=== PATIENT | female | born 1990 | race Caucasian/White ===

== ENCOUNTER 2017-01-01 01:45 | Emergency (ER) | payer BC ==
[~2017-01-01] VITALS: Ht 157.5 cm; Wt 59.4 kg
[~2017-01-01 01:45] MED LIST: AMOX-355 PO; BIRTH CONTROL PO; HYDR-3454 PO; HYDR-3714 PO; MAGN400T6 PO; METF500T8 PO; NAPR-243 PO; NITR-65 PO; OSLT75C PO
--- OUTSIDE RECORDS SUMMARY | 2017-01-01 01:53 | XMS REPORT | Continuity of Care Document ---
Author Author [facility] Address Unknown Phone Unavailable Allergies Active Description Code Type Severity Reaction Onset Reported/Identified Relationship to Patient Clinical Status Yes No Known Drug Allergies [id number] Drug Allergy Unknown N/ A 09/26/2013 Medications Problems Date Dx Coded Attending Type Code Diagnosis Diagnosed By 06/18/2010 Ot 719.41 06/18/2010 Ot 726.10 07/03/2012 ROMEL PHD, MIMI Arzola 296.22 MO DEPRESSIVE SINGLE MODERATE 07/03/2012 296.22 MO DEPRESSIVE SINGLE MODERATE 07/03/2012 296.22 MO DEPRESSIVE SINGLE MODERATE 07/12/2012 296.32 MO DEPRESSIVE RECURRENT MODERATE 07/12/2012 296.32 MO DEPRESSIVE RECURRENT MODERATE 07/23/2013 GONZALEZ KINNEY DO Ot 307.46 SLEEP AROUSAL DISORDER 07/23/2013 GONZALEZ KINNEY DO Ot 307.47 SLEEP STAGE DYSFUNC NEC 07/23/2013 GONZALEZ KINNEY DO Ot 786.09 RESPIRATORY ABNORM NEC 10/03/2013 CASPER CHO MD Ot 470 DEVIATED NASAL SEPTUM 10/03/2013 CASPER CHO MD Ot 478.0 HYPERTRPH NASAL TURBINAT 12/04/2013 SMILEY SCHAEFFER DO Ot 599.0 URIN TRACT INFECTION NOS 12/04/2013 SMILEY SCHAEFFER DO Ot 640.03 THREATEN ABORT-ANTEPART 12/04/2013 SMILEY SCHAEFFER DO Ot 646.63 INFECTION-ANTEPARTUM 12/04/2013 SMILEY SCHAEFFER DO Ot 649.53 SPOTTING COMP , ANTEPARTUM COND 02/09/2015 MICHAEL LEE DO Ot 840.8 02/09/2015 MICHAEL LEE DO Ot E927.9 03/18/2015 CASPER CHO MD Ot 470 03/18/2015 CASPER CHO MD Ot 478.0 03/18/2015 CASPER CHO MD Ot V72.84 03/18/2016 CASPER CHO MD Ot 470 DEVIATED NASAL SEPTUM 03/18/2016 CASPER CHO MD Ot 478.0 HYPERTRPH NASAL TURBINAT 03/18/2016 CASPER CHO MD Ot V72.84 EXAM PRE-OPERATIVE NOS Procedures Code [place] [address] PSYCH DIAGNOSTIC EVALUATION 07/03/2012 22082 PSYTX PT&/FAMILY 45 MINUTES 07/12/2012 02823 PSYTX PT&/FAMILY 45 MINUTES 08/14/2012 Results Encounters ACCT No. Visit Date/Time Discharge Status Pt. Type Provider Facility Loc./Unit Complaint [id number] 07/12/2012 14:04:00 07/12/2012 23: 59:59 CLS Outpatient [id number] 07/03/2012 08:41:00 07/03/2012 23: 59:59 CLS Outpatient MIMI URENA PHD [id number] 08/10/2012 14:55:00 Document Registration [id number] 12/04/2013 11:27:00 2013 13:25:00 DIS Emergency MAKSIM SMILEY [place] Via [facility] ER CRAMPING/VAG BLEEDING POSITIVE PREG TEST [id number] 10/03/2013 06:45:00 2013 12:00:00 DIS Outpatient CASPER CHO MD Via [facility] SDC DEVIATED SEPTUM [id number] 09/26/2013 07:36:00 2013 23:59:59 CLS Outpatient CASPER CHO MD Via [facility] PREOP DEVIATED SEPTUM [id number] 07/22/2013 19:53:00 2013 06:40:00 DIS Outpatient GONZALEZ KINNEY DO Via [facility] SLEEP SNORING,CHOKING [id number] 11/08/2012 08:48:00 2012 23:59:59 CLS Outpatient MICHAEL LEE DO Via [facility] RAD [id number] 08/10/2012 13:21:00 2012 23:59:59 CLS Outpatient [id number] 02/09/2015 16:13:00 Document Registration [id number] 02/09/2015 16:13:00 Document Registration [id number] 06/18/2010 13:46:00 Document Registration
[2017-01-01] MEDS ORDERED: L.E.T. SYRINGE 5 ML ONE (02:10)
[2017-01-01] MEDS ORDERED: TETANUS,DIPTH,PERTUSS P/F (BOOSTRIX) 0.5 ML VIAL IM ONE (02:15)
[2017-01-01] MEDS ORDERED: L.E.T. SYRINGE 5 ML TOP ONE (02:30)
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
[2017-01-01] MEDS ORDERED: LIDOCAINE/EPI 2% 1:100,00 (XYLOCAINE) 20 ML VIAL ONE (03:05)
[2017-01-01] MEDS ORDERED: RX-NAPROXEN (NAPROSYN) 250 MG TAB PPK#4 PO STA (03:45)
[2017-01-01] MEDS ORDERED: AUGMENTIN 875 MG TAB (AMOXICILLIN/CLAVULANATE) PO SCH (03:45)
[2017-01-01] MEDS ORDERED: RX-TRAMADOL 50 MG (ULTRAM) TAB PPK#4 PO STA (03:45)
[2017-01-01] MEDS ORDERED: NAPR500T3 PO ×2 (03:50→03:58)
[2017-01-01] MEDS ORDERED: AMOX-358 PO ×2 (03:50→03:58)
[2017-01-01] MEDS ORDERED: TRAM-42 PO ×2 (03:50→03:58)
[2017-01-01] MEDS ORDERED: IBUPROFEN 800 MG (MOTRIN) TAB PO ONE (04:00)
[2017-01-01 04:07] VITALS: BP 133/76
--- NOTE | 2017-01-01 07:16 | Diagnostic Imaging Report ---
INDICATION: Injury EXAMINATION: Left hand dated 01/01/2017 FINDINGS: There is no evidence for an acute fracture or dislocation. The joint spaces are well maintained. There is no significant soft tissue swelling. IMPRESSION: No acute process. Dictated by: Dictated on workstation # [id number]
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
== END 2017-01-01 04:08 | disposition home or self-care (01) ==
LOC: EDUNIT# 01:45 → ER 01:50
DX: Z04.3 Encounter for examination and observation following other accident (principal)
CPT/HCPCS: 70450; 70486; 72125; 73130; 84703; 90715; 99284

== ENCOUNTER 2017-01-05 07:17 | Emergency (ER) | payer BC ==
[~2017-01-05] VITALS: Ht 157.5 cm; Wt 59.0 kg
[~2017-01-05 07:17] MED LIST changes: +AMOX-358 PO; +NAPR500T3 PO; +TRAM-42 PO
--- OUTSIDE RECORDS SUMMARY | 2017-01-05 07:24 | XMS REPORT | Continuity of Care Document ---
Author Author [facility] Address Unknown Phone Unavailable Allergies Active Description Code Type Severity Reaction Onset Reported/Identified Relationship to Patient Clinical Status Yes No Known Drug Allergies [id number] Drug Allergy Unknown N/ A 09/26/2013 Medications [...] Procedures Code [place] [address] PSYCH DIAGNOSTIC EVALUATION 07/03/2012 42059 PSYTX PT&/FAMILY 45 MINUTES 07/12/2012 66048 PSYTX PT&/FAMILY 45 MINUTES 08/14/2012 Results Encounters ACCT No. Visit Date/Time Discharge Status Pt. Type Provider Facility Loc./Unit Complaint [id number] 07/12/2012 14:04:00 07/12/2012 23: 59:59 CLS Outpatient [id number] 07/03/2012 08:41:00 07/03/2012 23: 59:59 CLS Outpatient MIMI URENA PHD [id number] 08/10/2012 14:55:00 Document Registration [id number] 12/04/2013 11:27:00 2013 13:25:00 DIS Emergency MAKSIM SMILEY [place] Via [facility] ER CRAMPING/VAG BLEEDING POSITIVE PREG TEST [id number] 10/03/2013 06:45:00 2013 12:00:00 DIS Outpatient CASPER CHO MD Via [facility] SDC DEVIATED SEPTUM [id number] 09/26/2013 07:36:00 2013 23:59:59 CLS Outpatient CASPER CHO MD Via [facility] PREOP DEVIATED SEPTUM [id number] 07/22/2013 19:53:00 2013 06:40:00 DIS Outpatient GONZALEZ KINNEY DO Via [facility] SLEEP SNORING,CHOKING [id number] 11/08/2012 08:48:00 2012 23:59:59 CLS Outpatient MICHAEL LEE DO Via [facility] RAD [id number] 08/10/2012 13:21:00 2012 23:59:59 CLS Outpatient [id number] 02/09/2015 16:13:00 Document Registration [id number] 02/09/2015 16:13:00 Document Registration [id number] 06/18/2010 13:46:00 Document Registration
[2017-01-05 07:41] VITALS: BP 115/75
== END 2017-01-05 07:44 | disposition home or self-care (01) ==
LOC: EDUNIT# 07:17 → ER 07:19
DX: S01.511D Laceration without foreign body of lip, subsequent encounter (principal); X58.XXXD Exposure to other specified factors, subsequent encounter

== ENCOUNTER 2021-02-01 05:49 | Outpatient (CLI) | payer BC, OTHER ==
[~2021-02-01] VITALS: Ht 157.5 cm; Wt 59.9 kg
[~2021-02-01 05:49] MED LIST changes: +NAPR-915 PO; -NAPR500T3 PO
[2021-02-01] MEDS ORDERED: DESO1TAB70 PO (10:45)
[2021-02-01] MEDS ORDERED: LORA-1025 PO (10:45)
== END 2021-02-01 10:57 | disposition home or self-care (01) ==
LOC: PREOP 05:49
PROVIDERS: ATTEND Obstetrics & Gynecology
DX: Z01.818 Encounter for other preprocedural examination (principal)

== ENCOUNTER 2021-02-03 11:21 | Day surgery (SDC) | payer OTHER ==
[2021-02-03] VITALS (10 sets, daily range): BP systolic 97–120; BP diastolic 49–80
[~2021-02-03] VITALS: Ht 157.5 cm; Wt 59.9 kg
[~2021-02-03 11:21] MED LIST changes: +DESO1TAB70 PO; +LORA-1025 PO
[2021-02-03] MEDS ORDERED: ceFAZolin INJECTION 1,000 MG in WATER (STERILE) FOR INJECTION 10 ML IV ONE (11:45)
[2021-02-03] MEDS ORDERED: proPOfol 200 MG/20 ML (DIPRIVAN) VIAL IV ONE (11:57)
[2021-02-03] MEDS ORDERED: fentaNYL INJ 100 MCG/2 ML AMP ONE (11:57)
[2021-02-03] MEDS ORDERED: ONDANSETRON 4 MG/2 ML (SDV) Z0FRAN ONE (11:57)
[2021-02-03] MEDS ORDERED: LIDOCAINE PF 2% 5 ML (XYLOCAINE) VIAL ONE (11:57)
[2021-02-03] MEDS ORDERED: SEVOFLURANE (ULTANE) 15 ML INHAL SOLN ONE (11:57)
[2021-02-03] MEDS ORDERED: MIDAZOLAM 2 MG/2 ML (VERSED) VIAL ONE (11:58)
[2021-02-03] MEDS: LACTATED RINGERS 1,000 ML IV PRN ×2 (12:18→13:31)
[2021-02-03 12:26] LABS: BASOPHILS % (AUTO) 0 % (0-10); EOSINOPHILS # (AUTO) 0.1 10^3/uL (0.0-0.3); EOSINOPHILS % (AUTO) 2 % (0-10); HEMATOCRIT 40 % (35-52); HEMOGLOBIN 13.3 g/dL (11.5-16.0); LYMPHOCYTES # (AUTO) 1.4 10^3/uL (1.0-4.0); LYMPHOCYTES % (AUTO) 30 % (12-44); MEAN CORPUSCULAR HEMOGLOBIN 30 pg (25-34); MEAN CORPUSCULAR HGB CONC 33 g/dL (32-36); MEAN CORPUSCULAR VOLUME 90 fL (80-99); MEAN PLATELET VOLUME 9.8 fL (9.0-12.2); MONOCYTES # (AUTO) 0.7 10^3/uL (0.0-1.0); MONOCYTES % (AUTO) 14 % (0-12); NEUTROPHILS # (AUTO) 2.6 10^3/uL (1.8-7.8); NEUTROPHILS % (AUTO) 55 % (42-75); PLATELET COUNT 232 10^3/uL (130-400); WHITE BLOOD COUNT 4.7 10^3/uL (4.3-11.0)
--- NOTE | 2021-02-03 12:55 | Progress Note-Pre Operative ---
Pre-Operative Progress Note H&P Reviewed The H&P was reviewed, patient examined and no changes noted. Date Seen by Provider: Feb 03, 2021 Time Seen by Provider: 12:55 Date H&P Reviewed: Feb 03, 2021 Time H&P Reviewed: 12:55 Pre-Operative Diagnosis: NEHAL II AVA SULLIVAN MD Feb 03, 2021 12:55
--- NOTE | 2021-02-03 12:57 | Progress Note-Post Operative ---
Post-Operative Progess Note Surgeon (s)/Human Resource Professional (s) Surgeon AVA SULLIVAN MD Human Resource Professional: None Pre-Operative Diagnosis NEHAL II Post-Operative Diagnosis Same with pathology pending Procedure & Operative Findings Date of Procedure 02/03/21 Procedure Performed/Findings LEEP procedure Anesthesia Type General Estimated Blood Loss Estimated blood loss (mL): Minimal Specimens/Packing Specimens Removed Cervical cone AVA SULLIVAN MD Feb 03, 2021 12:56
--- NOTE | 2021-02-03 12:59 | Discharge Inst-Surgical ---
Discharge Inst-Surgical Consults/Follow Up Patient Instructions: As directed Orders & Referrals Follow Up Appt: Call to make follow up appt. for patient in 2 weeks. Activity: Rest for 24 hours, than as tolerated. May use [id number] Motrin/Advil/ibuprofen up to 800 mg every 6 hours as needed Diet: As tolerated may shower or tub bathe as desired. No driving for 24 hours, no alcoholic beverages for 24 hours, and nothing per vagina (no tampons, douching, or intercourse) for 2 weeks. Patient to return to the clinic as soon as possible for: Temperature greater than 101F, Severe Pain, Foul discharge from incision or vagina, Excessive Bleeding (more than a period). Activity Activity as Tolerated: No Diet Discharge Diet: No Restrictions AVA SULLIVAN MD Feb 03, 2021 12:58
[2021-02-03] MEDS ORDERED: D5 LR IV SOLUTION 1,000 ML IV SCH (13:00)
[2021-02-03] MEDS ORDERED: ONDANSETRON 4 MG/2 ML (SDV) Z0FRAN IVP PRN ×2 (13:00→13:30)
[2021-02-03] MEDS ORDERED: fentaNYL INJ 100 MCG/2 ML AMP IVP PRN (13:00)
[2021-02-03] MEDS ORDERED: KETOROLAC 30 MG/ML VIAL IVP ONE (13:00)
[2021-02-03] MEDS ORDERED: KETOROLAC 30 MG/ML VIAL ONE (13:16)
[2021-02-03] MEDS ORDERED: LACTATED RINGERS 1,000 ML IV ONE (13:26)
[2021-02-03] MEDS ORDERED: fentaNYL INJ 100 MCG/2 ML AMP IVP ONE (13:30)
--- NOTE | 2021-02-03 14:27 | Anesthesia-General Post-Op ---
General Patient Condition Mental Status/LOC: Same as Preop Cardiovascular: Satisfactory Nausea/Vomiting: Absent Respiratory: Satisfactory Pain: Controlled Complications: Absent Post Op Complications Complications None Follow Up Care/Instructions Patient Instructions None needed. Anesthesia/Patient Condition Patient Condition Patient is doing well, no complaints, stable vital signs, no apparent adverse anesthesia problems. No complications reported per nursing. RIDDHI WINCHESTER CRNA Feb 03, 2021 14:27
--- NOTE | 2021-02-03 17:48 | OPERATIVE REPORT ---
DATE OF SERVICE: 02/03/2021 PREOPERATIVE DIAGNOSIS: NEHAL-2. POSTOPERATIVE DIAGNOSIS: NEHAL-2 with pathology pending. OPERATIVE PROCEDURE: LEEP. OPERATIVE DESCRIPTION: With the patient in supine position under satisfactory general anesthesia, she was repositioned in dorsal lithotomy position in the Fortino stirrups and prepped and draped in the usual fashion for vaginal surgery. Urinary bladder was drained with a straight catheter. A weighted speculum placed in posterior fornix of vagina, cervix exposed and grasped anteriorly with single tooth tenaculum. The cervix was saturated with 5% acetic acid and after several minutes that was evacuated from the vagina. There was an acetowhite lesion at the 3 o'clock position of the cervix. Approximately a centimeter from the center line of the cervix, there was an acetowhite lesion on the periphery of the cervical os. A LEEP specimen was removed using a 2 cm. LEEP electrode widely set at 45 on cut and 45 on cautery. The LEEP specimen was removed and a single pass to remove the entire acetowhite lesion and transformation zone. That specimen was tagged at 12 o'clock position and sent to pathology for permanent section. The defect was treated with ball electrode to effect hemostasis. With hemostasis complete, the tenaculum was removed. There was minimal bleeding from one of the puncture sites. There was no bleeding from the cervical os. The procedure at this point was complete and terminated. Sponge and needle counts were correct. Blood loss was minimal. The patient was uneventfully awakened from her general anesthesia and transferred to recovery room in stable condition with plans for discharge home PAR. Job ID: [id number] DocumentID: [id number] Dictated Date: 02/03/2021 13:15:53 Rental Representative Date: 02/03/2021 17:48:20 Dictated By: AVA SULLIVAN MD
== END 2021-02-03 15:22 | disposition home or self-care (01) ==
LOC: SDC 11:21
PROVIDERS: ATTEND Obstetrics & Gynecology
DX: N87.0 Mild cervical dysplasia (principal); E28.2 Polycystic ovarian syndrome; N80.0 Endometriosis of uterus; Z79.3 Long term (current) use of hormonal contraceptives; Z88.1 Allergy status to other antibiotic agents; Z11.2 Encounter for screening for other bacterial diseases
CPT/HCPCS: 36415; 84703; 85025; 87081